=== PATIENT | female | born 1960 | race Caucasian/White ===

== ENCOUNTER 2021-05-04 09:52 | Outpatient (CLI) | payer OTHER | END 2021-05-04 09:53 | disposition home or self-care (01) | LOC: CSHMAMMO 09:52 | PROVIDERS: ATTEND Internal Medicine | DX: Z12.31 Encounter for screening mammogram for malignant neoplasm of breast (principal); Z13.820 Encounter for screening for osteoporosis; M85.89 Other specified disorders of bone density and structure, multiple sites; Z80.3 Family history of malignant neoplasm of breast | CPT/HCPCS: 77063; 77067; 77080 ==

== ENCOUNTER 2022-06-18 09:09 | Outpatient (CLI) | payer BC | END 2022-06-18 09:10 | disposition home or self-care (01) | LOC: CSHMAMMO 09:09 | PROVIDERS: ATTEND Internal Medicine | DX: Z12.31 Encounter for screening mammogram for malignant neoplasm of breast (principal); Z80.3 Family history of malignant neoplasm of breast | CPT/HCPCS: 77063; 77067 ==